=== PATIENT | male | born 2005 ===

== ENCOUNTER 2024-12-07 08:58 | Outpatient (CLI) | payer OTHER, SELFPAY ==
--- NOTE | 2024-12-07 09:15 | CRLHL7_ITS ---
For Patients: As a result of the Century Cures Act, medical imaging exams and procedure reports are released immediately into your electronic medical record. You may view this report before your referring provider. If you have questions, please contact your health care provider. INDICATION: PALPABLE LUMP COMPARISON: none TECHNIQUE: Jones scale imaging was performed of the scrotum. In addition color Doppler and spectral Doppler analysis was performed of the testes. FINDINGS: The testes demonstrate normal arterial and venous blood flow on color Doppler and spectral Doppler analysis. The testes have uniform echogenicity with no evidence of a suspicious mass or area of inflammation. The right testis measures 6.3 x 2.5 x 3.8 cm in size and the left testis measures 5.9 x 2.3 x 3.8 cm. Circumscribed cyst arises from the left epididymal head measures 18 x 17 x 17 millimeters. Normal right epididymis. There is no evidence of a hydrocele or varicocele. IMPRESSION: Normal testicles. 1.8 cm left epididymal head cyst. Dictated by Kashif Ambrose MD @ 12/07/2024 3:29:51 PM (Electronically Signed)
== END 2024-12-07 08:59 | disposition home or self-care (01) ==
PROVIDERS: PCP Family Medicine; Visit Provider Family Medicine
DX: N50.89 Other specified disorders of the male genital organs (principal); L72.0 Epidermal cyst
CPT/HCPCS: 76870; 93976